=== PATIENT | male | born 1985 | race Caucasian/White ===

== ENCOUNTER 2019-01-19 14:51 | Emergency (ER) | payer MEDICAID, OTHER ==
[~2019-01-19] VITALS: Ht 170.2 cm; Wt 95.5 kg
[~2019-01-19 14:51] MED LIST: NOCURR
[2019-01-19 14:54] VITALS: BP 116/73
[2019-01-19] MEDS ORDERED: PSEUDOEPHEDRINE HCL 30 MG TABLET PO ONE (16:15)
[2019-01-19] MEDS ORDERED: IBUPROFEN 600 MG TABLET PO ONE (16:15)
[2019-01-19] MEDS ORDERED: ACETAMINOPHEN 325 MG TABLET PO ONE (16:15)
[2019-01-19 16:25] LABS: INFLUENZA TYPE A NEGATIVE FOR TYPE A (NEGATIVE); INFLUENZA TYPE B NEGATIVE FOR TYPE B (NEGATIVE)
== END 2019-01-19 17:15 | disposition home or self-care (01) ==
LOC: EMS 14:53
DX: J06.9 Acute upper respiratory infection, unspecified (principal); B34.9 Viral infection, unspecified; F17.210 Nicotine dependence, cigarettes, uncomplicated
CPT/HCPCS: 87804

== ENCOUNTER 2019-03-02 23:13 | Emergency (ER) | payer MEDICAID, OTHER ==
[~2019-03-02] VITALS: Ht 177.8 cm; Wt 100.0 kg
[2019-03-03] MEDS ORDERED: ACETAMINOPHEN 500 MG TABLET PO ONE
[2019-03-03] MEDS ORDERED: IBUPROFEN 600 MG TABLET PO ONE
[2019-03-03 01:13] VITALS: BP 133/71
== END 2019-03-03 01:10 | disposition home or self-care (01) ==
LOC: EMS 23:15
DX: S20.212A Contusion of left front wall of thorax, initial encounter (principal); M25.512 Pain in left shoulder; V29.9XXA Motorcycle rider (driver) (passenger) injured in unspecified traffic accident, initial encounter; Y93.89 Activity, other specified; Y92.89 Other specified places as the place of occurrence of the external cause; Y99.8 Other external cause status
CPT/HCPCS: 71046; 71100; 73030; 99283; G0238

== ENCOUNTER 2020-06-27 14:58 | Emergency (ER) | payer MEDICAID ==
[~2020-06-27] VITALS: Ht 180.3 cm; Wt 86.4 kg
[2020-06-27 15:04] VITALS: BP 107/61
== END 2020-06-27 15:45 | disposition home or self-care (01) ==
LOC: EMS 15:04
DX: R07.9 Chest pain, unspecified (principal); Z53.21 Procedure and treatment not carried out due to patient leaving prior to being seen by health care provider
CPT/HCPCS: 93005

== ENCOUNTER 2020-11-30 21:15 | Emergency (ER) | payer OTHER | END 2020-11-30 21:40 | disposition left against medical advice (07) | LOC: EMS 21:22 | DX: Z20.822 Contact with and (suspected) exposure to COVID-19 (principal); Z53.21 Procedure and treatment not carried out due to patient leaving prior to being seen by health care provider ==

== ENCOUNTER 2021-06-07 22:52 | Emergency (ER) | payer OTHER ==
[~2021-06-07] VITALS: Ht 180.3 cm; Wt 86.4 kg
[2021-06-07 22:56] VITALS: BP 134/72
[2021-06-07 23:25] LABS: BASOPHILS % (AUTO) 0.4 % (0.0-2.0); EOSINOPHILS % (AUTO) 3.3 % (1.0-6.0); HEMATOCRIT 39.8 % (41-53); HEMOGLOBIN 13.4 g/dL (13.5-17.5); LYMPHOCYTES # (AUTO) 1.6 K/uL (1.0-4.8); MEAN CORPUSCULAR HEMOGLOBIN 30.4 pg (26.0-34.0); MEAN CORPUSCULAR HGB CONC 33.7 G/dL (31.0-37.0); MEAN CORPUSCULAR VOLUME 90 fL (80-100); MONOCYTES # (AUTO) 0.6 K/uL (0.1-1.0); MONOCYTES % (AUTO) 11.5 % (2.0-9.0); NEUTROPHILS # (AUTO) 2.6 K/uL (1.8-7.7); NEUTROPHILS % (AUTO) 51.8 % (40.0-70.0); PLATELET COUNT (AUTO) 319 K/uL (150-450); RED BLOOD CELL COUNT(AUTO) 4.41 MIL/uL (4.50-5.90); RED CELL DISTRIBUTION WIDTH 14.2 % (11.5-14.5)
[2021-06-07 23:55] LABS: ANION GAP 9 mmol/L (8-16); CALCIUM, TOTAL 9.1 mg/dL (8.8-10.5); CARBON DIOXIDE 28 mmol/L (22-29); CHLORIDE 103 mmol/L (98-107); CREATININE 0.85 mg/dL (0.60-1.30); GLOMERULAR FILTR. RATE CALC > 60 mL/min (>60); GLUCOSE,RANDOM 108 mg/dL (70-110); POTASSIUM 3.7 mmol/L (3.5-5.1); SODIUM SERUM 140 mmol/L (136-145); UREA NITROGEN, BLOOD 16 mg/dL (7-18)
[2021-06-08 00:02] LABS: ALANINE AMINOTRANSFERASE 38 U/L (12-78); ALBUMIN 4.1 g/dL (3.4-5.0); ALKALINE PHOSPHATASE 65 U/L (46-116); ASPARTATE AMINOTRANSFERASE 26 U/L (15-37); BILIRUBIN,TOTAL 0.4 mg/dL (0.1-1.0); TOTAL PROTEIN, SERUM 8.2 g/dL (6.4-8.2)
== END 2021-06-08 01:06 | disposition home or self-care (01) ==
LOC: EMS 22:53
DX: R19.7 Diarrhea, unspecified (principal); F12.90 Cannabis use, unspecified, uncomplicated
CPT/HCPCS: 80053; 85025; 99283

== ENCOUNTER 2021-06-12 06:24 | Emergency (ER) | payer OTHER ==
[~2021-06-12] VITALS: Ht 180.3 cm; Wt 86.4 kg
[2021-06-12] MEDS ORDERED: FAMO20 PO (07:22)
[2021-06-12 09:37] VITALS: BP 124/70
== END 2021-06-12 09:49 | disposition home or self-care (01) ==
LOC: EMS 06:25
DX: R19.7 Diarrhea, unspecified (principal); F12.90 Cannabis use, unspecified, uncomplicated
CPT/HCPCS: 99283

== ENCOUNTER 2021-08-01 19:19 | Emergency (ER) | payer OTHER ==
[~2021-08-01 19:19] MED LIST changes: +FAMO20 PO; -NOCURR
== END 2021-08-01 20:37 | disposition left against medical advice (07) ==
LOC: EMS 19:19
DX: Z53.21 Procedure and treatment not carried out due to patient leaving prior to being seen by health care provider (principal)

== ENCOUNTER 2022-01-11 12:07 | Emergency (ER) | payer OTHER ==
[~2022-01-11] VITALS: Ht 180.3 cm; Wt 90.9 kg
[2022-01-11 12:10] VITALS: BP 112/70
[2022-01-11] MEDS ORDERED: RISP4TAB73 PO (12:14)
== END 2022-01-11 12:49 | disposition left against medical advice (07) ==
LOC: EMS 12:09
DX: Z53.21 Procedure and treatment not carried out due to patient leaving prior to being seen by health care provider (principal)

== ENCOUNTER → 2023-05-30 | Emergency (ER) | payer OTHER ==
[~2023-05-30] VITALS: Ht 180.3 cm; Wt 90.9 kg
[~2023-05-30] MED LIST changes: -FAMO20 PO; +LEVO-72 PO; +RISP4TAB94 PO
[2023-05-30 00:17] VITALS: TEMP 98.8
[2023-05-30 02:07] LABS: APPEARANCE,URINE CLEAR (CLEAR); BILIRUBIN,URINE NEGATIVE (NEGATIVE); COLOR,URINE YELLOW (YELLOW); GLUCOSE, URINE (UA) NEGATIVE (NEGATIVE); KETONES,URINE NEGATIVE (NEGATIVE); LEUKOCYTE ESTERASE ,URINE LARGE (NEGATIVE); NITRATE,URINE NEGATIVE (NEGATIVE); OCCULT BLOOD,URINE SMALL (NEGATIVE); PROTEIN,URINE 30-70 mg/dL (NEGATIVE); SPECIFIC GRAVITIY, URINE 1.037 (1.003-1.030); UROBILINOGEN,URINE <=1.0 mg/dL (<=1.0)
[2023-05-30 02:22] LABS: BACTERIA,URINE Few /HPF (None Seen); SQUAMOUS EPITHELIAL CELL,UR Few /LPF (None Seen)
[2023-05-30] MEDS: LIDOCAINE/PF 1% 2 ML VIAL IM ONE (03:18)
[2023-05-30] MEDS: CefTRIAXone SODIUM 1 GM/VIAL IM ONE (03:18)
[2023-05-30 03:21] VITALS: BP 121/63; PULSE 102; RESP 18
== END | disposition still patient (30) ==
LOC: EMS 00:16
DX: N39.0 Urinary tract infection, site not specified (principal); F12.90 Cannabis use, unspecified, uncomplicated; F15.90 Other stimulant use, unspecified, uncomplicated
CPT/HCPCS: 99285; 81001; 87086; 87186; 76870; 96372; J0696; J3490